=== PATIENT | female | born 1960 | race Caucasian/White ===

== ENCOUNTER 2021-09-06 01:48 | Emergency (ER) | payer BC ==
[~2021-09-06] VITALS: Ht 172.7 cm; Wt 81.6 kg
[2021-09-06] MEDS ORDERED: AMLODIPINE-OLM1 EAC2 (02:11)
[2021-09-06] MEDS ORDERED: KETO10TA2 PO (05:04)
[2021-09-06] MEDS ORDERED: PERCOCET 5-3251 EACH PO (05:13)
== END 2021-09-06 05:15 | disposition home or self-care (01) ==
LOC: ER 01:48
DX: S69.91XA Unspecified injury of right wrist, hand and finger(s), initial encounter (principal); W19.XXXA Unspecified fall, initial encounter; Y92.59 Other trade areas as the place of occurrence of the external cause